=== PATIENT | male | born 1965 | race Caucasian/White ===

== ENCOUNTER 2019-03-31 10:48 | Day surgery (SDC) | payer OTHER, MEDICAID, SELFPAY ==
[2019-03-31] VITALS (7 sets, daily range): BP systolic 105–146; BP diastolic 68–91; PULSE 62–89; RESP 11–20; TEMP 36.2–36.5; O2SAT 94–97; BMI 24.4
--- NOTE | 2019-03-31 | PATH_ITS ---
[facility] Accession Number: [id number] . 01 Material submitted: . PART A: ileum - TERMINAL ILEUM PART B: colon - COLON POLYP AT 20CM . 01 Clinical history: . B: COLON POLYP AT 20CM X2 . 02 Diagnosis: A. Terminal Ileum, Biopsy: Small bowel mucosa with no diagnostic abnormality. Negative for active inflammation, dysplasia or malignancy. . B. Colon, Polyps at 20 cm x2, Biopsies: Hyperplastic polyp and mucosal prolapse polyp. Negative for dysplasia and malignancy. [facility]/04/02/2019 . 02 Electronically signed: . Penny Bravo MD, Pathologist NPI- [id number] . 01 Gross description: . Part A: TERMINAL ILEUM: Received in formalin are multiple fragment(s) of banuelos, soft tissue measuring 1.0 x 0.7 x 0.3 cm in aggregate submitted entirely in 1 cassette(s) Part B: COLON POLYP AT 20CM: Received in formalin are 2 fragment(s) of banuelos, soft tissue measuring 1.0 x 0.6 x 0.3 cm to 0.7 x 0.3 x 0.2 cm which are inked, bisected and submitted entirely in 2 cassette(s) /CKI /CKI . 02 Pathologist provided ICD-10: K63.5 . 02 CPT . 026268, [id number] Performed at: 01 [facility] [address] [place] [address] [id number] MD Lalit Cabrera MD Phone: [phone] Performed at: 02 [facility] [address] [place], [place] [id number] MD Penny Bravo MD Phone: [phone]
[2019-03-31] MEDS: SODIUM CHLORIDE 0.9% 1,000 ML 200 ML IV (11:12)
--- NOTE | 2019-03-31 11:16 | PM.PREOP ---
Pre-operative Note Interval Note History & Physical reviewed/Exam performed by Physician: Yes Changes to H&P: No H&P completed within 30 days and has changed as indicated here:: SEE H AND P FROM 03/12 ASA Class (for procedural sedation): I
[2019-03-31] MEDS: fentaNYL 250 MCG/5 ML INJ IV (11:43)
[2019-03-31] MEDS: MIDAZOLAM 5 MG/5 ML VIAL IV (11:43)
--- NOTE | 2019-03-31 12:11 | PM.OP.ENDO ---
Operative Date/Time/Diagnoses Date of procedure: 03/31/19 Time of procedure: 12:11 Pre-op diagnosis: SCREENING EXAM. HISTORY OF RECTAL BLEEDING. Post-op diagnosis: same (Same. Two small rectal polyps. Both were snared.) Procedure & Clinicians Study performed: Colonoscopy with cold biopsy of the terminal ileum and hot snare polypectomy Same procedure as scheduled: Yes Indications: History of rectal bleeding. Screening at age 53. This is his 1st colonoscopy. Surgeon: Juan Chan Procedure Notes SCOAP/Timeout: Performed Procedure in detail: The patient was placed in the left lateral decubitus position and underwent IV sedation directed by the surgeon consisting of fentanyl and Versed. Digital exam was unremarkable. His prostate is flat.. The scope was inserted and advanced through the rectum into the sigmoid, descending, transverse, and ascending colon. A stiffener was inserted and we made our way into the cecum.. The cecum was reached identified by the ileocecal valve and the appendiceal opening. The ileocecal valve was successfully cannulated. The terminal ileum seemed to have an unusually large number of lymphoid follicles but was otherwise normal in appearance. There was no inflammation or bleeding. biopsies were taken of the terminal ileum. The scope was gradually brought out. Polyps were found at 20 cm from the anal verge. These were snared with a hot snare and removed. The scope was retroflexed in the rectum prior to removal of the polyps. The appearance was normal on retroflexed view. The scope was removed and the patient tolerated the procedure well. while going slowly through the anal verge I did note that the patient had hemorrhoids without ulceration in this region. they are the most likely source of his preop bleeding but are not in a location very amenable to banding. Of note, the prep was suboptimal. I doubt I missed any large polyps but fine mucosal detail was lost in sections of the cecum and ascending colon due to very thin but adherent layer of stool which I could not rinse off. Because of this I would recommend the patient have his next colonoscopy in 3 rather than 5 years Scope withdrawal time: 9.5 min excludes biopsy time Sedation minutes: 38 Findings: internal hemorrhoids (Small at the anal verge), polyp (Two small rectal polyps) and other findings (Prominent lymphoid follicles of the terminal ileum. Biopsies taken. Probable normal variant) Specimen(s): other (Polyps/terminal ileum biopsies) Recommendations: Colonscopy in 3 years (Due to suboptimal prep) and Other recommendation (Should have a 2 day prep for next colonoscopy) Follow up: as needed Disposition: PACU
== END 2019-03-31 13:45 | disposition home or self-care (01) ==
PROVIDERS: PCP Family Medicine; Visit Provider Specialist
PROC: 0DJD8ZZ Inspection of Lower Intestinal Tract, Via Natural or Artificial Opening Endoscopic (ICD-10-PCS; CPT 45378; principal; 2019-03-31 11:45)
DX: K62.5 Hemorrhage of anus and rectum (principal); K64.8 Other hemorrhoids; R10.9 Unspecified abdominal pain; R19.7 Diarrhea, unspecified; K63.5 Polyp of colon
CPT/HCPCS: 45385; 45380; 99152; 99153; J2250; J3010

== ENCOUNTER → 2020-12-16 11:28 | Outpatient (CLI) | payer OTHER, MEDICAID, SELFPAY ==
[2020-12-16 12:40] LABS: COVID19 -Nasal RAPID Negative (Negative)
== END ==
PROVIDERS: PCP Family Medicine; Referring Provider Family Medicine; Visit Provider Family Medicine
DX: Z20.822 Contact with and (suspected) exposure to COVID-19 (principal)
CPT/HCPCS: 87635; C9803

== ENCOUNTER → 2020-12-16 11:42 | Outpatient (CLI) | payer OTHER, MEDICAID, SELFPAY ==
--- NOTE | 2020-12-21 10:35 | PM.PFT.1 ---
Pulmonary Function Test Referral & Results Date Patient Seen: 12/16/20 Requesting provider: Thiago Del Rosario Results: The spirometry demonstrates an FVC of 6.31 L which is 119% of predicted. The FEV1 was measured at 3.97 L which is 97% of predicted. The FEV1/FVC ratio was 63 which is 81% of predicted. Following the administration of bronchodilator there was a 9% improvement in FEV1 and a 53% improvement in FEF 25-75%. Lung volumes show an SVC of 6.3 L which is 123% of predicted. The diffusing capacity was measured at 34.89 which is 99% of predicted. The maximum voluntary ventilation was normal Interpretation: This study demonstrates perhaps very very mild obstructive lung disease based on shape of flow volume loop and minor improvement after bronchodilator as noted above. However patient's spirometry numbers are actually considered normal. Clinical correlation suggested
== END ==
PROVIDERS: PCP Family Medicine; Referring Provider Family Medicine; Visit Provider Family Medicine
DX: R05 Cough (principal); J98.8 Other specified respiratory disorders; Z87.891 Personal history of nicotine dependence; Z20.822 Contact with and (suspected) exposure to COVID-19
CPT/HCPCS: 87635; 94060; 94726; 94729; C9803

== ENCOUNTER → 2022-02-09 07:30 | Outpatient (CLI) | payer OTHER, MEDICAID, SELFPAY | PROVIDERS: PCP Family Medicine; Visit Provider Physician Assistant | DX: J44.9 Chronic obstructive pulmonary disease, unspecified (principal); J06.9 Acute upper respiratory infection, unspecified | CPT/HCPCS: 87070; 87205 ==

== ENCOUNTER → 2024-01-15 10:08 | Outpatient (CLI) | payer OTHER, MEDICAID, SELFPAY ==
[2024-01-15 19:03] LABS: Add Manual Diff / Slide Review NO; Basophils Absolute Auto 100 /uL (0-100); Basophils Percent Auto 0.7 % (0-2); Eosinophils Absolute Auto 500 /uL (0-450); Eosinophils Percent Auto 6.3 % (2-4); Hematocrit 45.3 % (41-53); Lymphocytes Absolute Auto 2900 /uL (1100-4500); Lymphocytes Percent Auto 34.8 % (25-40); Mean Corpuscular HGB Conc 35.4 % (30-36); Mean Corpuscular Hemoglobin 34.1 PG (26-34); Mean Corpuscular Volume 96.2 fL (80-100); Monocytes Absolute Auto 1100 /uL (0-900); Monocytes Percent Auto 12.8 % (3-14); Neutrophils Absolute Auto 3800 /uL (1500-7000); Neutrophils Percent Auto 45.4 % (50-75); Platelet Count 259 X10^3/uL (150-400); Red Blood Cell Count 4.71 X10^6/uL (4.5-5.9); Red Cell Distribution Width 12.7 % (11.6-14.8); White Blood Cell Count 8.4 X10^3/uL (4.5-11.0)
[2024-01-15 19:11] LABS: Alanine Aminotransferase 35 IU/L (<50); Albumin Globulin Ratio 1.2 (1.0-2.8); Alkaline Phosphatase 158 U/L (38-126); Aspartate Aminotransferase 42 IU/L (17-59); BUN Creatinine Ratio 20.2 (6-22); Bilirubin Total 1.1 mg/dL (0.2-1.3); Blood Urea Nitrogen 17 mg/dL (9-20); Calcium 9.2 mg/dL (8.4-10.2); Carbon Dioxide 38 mmol/L (22-32); Chloride 103 mmol/L (98-107); Cholesterol 259 mg/dL (140-199); Estimated Glomerular Filt Rate > 60 mL/min (>60); Globulin 3.4 g/dL (1.7-4.1); Glucose 107 mg/dL (70-100); HDL Cholesterol 49 mg/dL (40-60); LDL Cholesterol Calculated 162 mg/dL (<100); Potassium 3.7 mmol/L (3.4-5.1); Sodium 138 mmol/L (137-145); Total Protein 7.4 g/dL (6.3-8.2); Triglycerides 239 mg/dL (35-150)
[2024-01-15 19:27] LABS: HEMOLYSIS 161 (0-50)
[2024-01-15 20:15] LABS: Prostate Specific Antigen Scrn 0.791 ng/mL (0.1-4.0)
== END ==
PROVIDERS: PCP Family Medicine; Visit Provider Family Medicine
DX: Z13.6 Encounter for screening for cardiovascular disorders (principal); Z11.59 Encounter for screening for other viral diseases; Z13.1 Encounter for screening for diabetes mellitus; Z12.5 Encounter for screening for malignant neoplasm of prostate; Z13.0 Encounter for screening for diseases of the blood and blood-forming organs and certain disorders involving the immune mechanism
CPT/HCPCS: 80053; 80061; 85025; G0103

== ENCOUNTER → 2025-01-29 08:01 | Outpatient (CLI) | payer OTHER, SELFPAY ==
[2025-01-29 18:09] LABS: Add Manual Diff / Slide Review NO; Basophils Absolute Auto 100 /uL (0-100); Basophils Percent Auto 1.3 % (0-2); Eosinophils Absolute Auto 400 /uL (0-450); Eosinophils Percent Auto 5.5 % (2-4); Hematocrit 47.5 % (41-53); Hemoglobin 16.4 g/dL (13.5-17.5); Lymphocytes Absolute Auto 3000 /uL (1100-4500); Lymphocytes Percent Auto 38.8 % (25-40); Mean Corpuscular HGB Conc 34.5 % (30-36); Mean Corpuscular Hemoglobin 33.9 PG (26-34); Monocytes Absolute Auto 1000 /uL (0-900); Monocytes Percent Auto 13.5 % (3-14); Neutrophils Absolute Auto 3200 /uL (1500-7000); Neutrophils Percent Auto 40.9 % (50-75); Platelet Count 253 X10^3/uL (150-400); Red Blood Cell Count 4.84 X10^6/uL (4.5-5.9); Red Cell Distribution Width 12.4 % (11.6-14.8); White Blood Cell Count 7.8 X10^3/uL (4.5-11.0)
[2025-01-29 18:10] LABS: Hemoglobin A1C% w Est Avg Glu 5.4 % (4.0-6.0)
[2025-01-29 18:12] LABS: Alanine Aminotransferase 36 IU/L (<50); Albumin 4.4 g/dL (3.5-5.0); Albumin Globulin Ratio 1.6 (1.0-2.8); Alkaline Phosphatase 78 U/L (38-126); Aspartate Aminotransferase 35 IU/L (17-59); BUN Creatinine Ratio 18.5 (6-22); Bilirubin Total 0.9 mg/dL (0.2-1.3); Blood Urea Nitrogen 15 mg/dL (9-20); Calcium 9.2 mg/dL (8.4-10.2); Carbon Dioxide 23 mmol/L (22-32); Chloride 103 mmol/L (98-107); Cholesterol 263 mg/dL (140-199); Estimated Glomerular Filt Rate > 60 mL/min (>60); Globulin 2.8 g/dL (1.7-4.1); Glucose 92 mg/dL (70-100); HDL Cholesterol 50 mg/dL (40-60); HEMOLYSIS 25 (0-50); LDL Cholesterol Calculated 169 mg/dL (<100); Potassium 3.8 mmol/L (3.4-5.1); Sodium 137 mmol/L (137-145); Total Protein 7.2 g/dL (6.3-8.2); Triglycerides 218 mg/dL (35-150)
[2025-01-29 18:43] LABS: Prostate Specific Antigen Scrn 0.761 ng/mL (0.1-4.0); Thyroid Stimulating Hormone 2.33 uIU/mL (0.47-4.68)
== END ==
PROVIDERS: PCP Family Medicine; Visit Provider Family Medicine
DX: Z87.891 Personal history of nicotine dependence (principal); Z13.0 Encounter for screening for diseases of the blood and blood-forming organs and certain disorders involving the immune mechanism; R73.01 Impaired fasting glucose; E78.2 Mixed hyperlipidemia; Z12.5 Encounter for screening for malignant neoplasm of prostate
CPT/HCPCS: 80053; 80061; 83036; 84443; 85025; G0103